=== PATIENT | female | born 1990 | race African-American/Black ===

== ENCOUNTER 2019-02-04 13:29 | Emergency (ER) | payer OTHER ==
[~2019-02-04] VITALS: Ht 165.1 cm; Wt 66.2 kg
[2019-02-04] MEDS ORDERED: KEPPRA250 MG PO (13:38)
[2019-02-04] MEDS ORDERED: CIPROFLOXIN HC2.5 M1 OPHTHALMIC (14:31)
[2019-02-04 15:51] VITALS: BP 95/63
== END 2019-02-04 15:35 | disposition home or self-care (01) ==
LOC: ER 13:29
DX: H16.001 Unspecified corneal ulcer, right eye (principal); Z98.51 Tubal ligation status

== ENCOUNTER 2019-02-16 21:46 | Emergency (ER) | payer OTHER ==
[~2019-02-16] VITALS: Ht 165.1 cm; Wt 56.7 kg
[~2019-02-16 21:46] MED LIST: CIPROFLOXIN HC2.5 M1 OPHTHALMIC; KEPPRA250 MG PO
[2019-02-16 22:50] VITALS: BP 101/71
== END 2019-02-16 23:00 | disposition home or self-care (01) ==
LOC: ER 21:46
DX: Z20.2 Contact with and (suspected) exposure to infections with a predominantly sexual mode of transmission (principal)

== ENCOUNTER 2019-09-02 22:24 | Emergency (ER) | payer OTHER ==
[~2019-09-02] VITALS: Ht 170.2 cm; Wt 59.0 kg
[2019-09-03 00:38] LABS: ABSOLUTE NEUTROPHILS 2.5 thou/uL (1.4-8.2); BASOPHILS 0.9 % (0.0-2.0); EOSINOPHILS 0.5 % (0.0-3.0); HEMATOCRIT 31.8 % (37.0-47.0); HEMOGLOBIN 9.8 gm/dL (12.0-15.0); LYMPHOCYTES 27.8 % (24.0-44.0); MCH 23.2 pg (26.0-34.0); MCHC 30.9 g/dL (28.0-37.0); MCV 75.3 fL (80.0-100.0); MONOCYTES 10.7 % (1.0-8.0); PLATELET COUNT 277 thou/uL (150-400); POLYS 60.1 % (36.0-66.0); RBC 4.23 mil/uL (4.20-5.00); RDW 17.3 % (10.5-14.5); WBC 4.2 thou/uL (4.0-11.0)
[2019-09-03 00:44] LABS: CALCIUM 8.3 mg/dL (8.5-10.1); CREATININE 0.7 mg/dL (0.6-1.0); POTASSIUM 3.4 mmol/L (3.5-5.1)
[2019-09-03 00:50] LABS: ALBUMIN 3.7 g/dL (3.4-5.0); TOTAL BILIRUBIN 0.8 mg/dL (<0.1-1.0); TOTAL PROTEIN 7.4 g/dL (6.4-8.2)
[2019-09-03 00:56] LABS: URINE BILIRUBIN NEGATIVE (Negative); URINE BLOOD TRACE (Negative); URINE CLARITY CLEAR; URINE COLOR YELLOW; URINE GLUCOSE-RANDOM* NEGATIVE (Negative); URINE KETONES NEGATIVE (Negative); URINE LEUKOCYTES-REFLEX NEGATIVE (Negative); URINE NITRITE-REFLEX NEGATIVE (Negative); URINE PROTEIN (DIPSTICK) NEGATIVE (Negative); URINE SPECIFIC GRAVITY 1.025 (1.005-1.035); URINE UROBILINOGEN 0.2 E.U./dl (0.2-1.0)
[2019-09-03] MEDS ORDERED: IBUPROFEN 400400 M1 PO (01:24)
[2019-09-03] MEDS ORDERED: FLEXERIL PO (01:24)
[2019-09-03 01:45] VITALS: BP 108/79
== END 2019-09-03 02:02 | disposition home or self-care (01) ==
LOC: ER 22:24
PROVIDERS: Emergency Medicine Emergency Medical Services
DX: R10.32 Left lower quadrant pain (principal); Z98.51 Tubal ligation status

== ENCOUNTER 2019-09-07 18:20 | Emergency (ER) | payer OTHER ==
[~2019-09-07] VITALS: Ht 170.2 cm; Wt 59.0 kg
[~2019-09-07 18:20] MED LIST changes: +FLEXERIL PO; +IBUPROFEN 400400 M1 PO
[2019-09-07 19:37] LABS: URINE BILIRUBIN NEGATIVE (Negative); URINE BLOOD NEGATIVE (Negative); URINE CLARITY CLEAR; URINE COLOR YELLOW; URINE GLUCOSE-RANDOM* NEGATIVE (Negative); URINE KETONES NEGATIVE (Negative); URINE LEUKOCYTES-REFLEX NEGATIVE (Negative); URINE NITRITE-REFLEX NEGATIVE (Negative); URINE PROTEIN (DIPSTICK) NEGATIVE (Negative); URINE SPECIFIC GRAVITY 1.025 (1.005-1.035)
[2019-09-07 19:37] LABS: ABSOLUTE NEUTROPHILS 1.7 thou/uL (1.4-8.2); EOSINOPHILS 2.4 % (0.0-3.0); HEMATOCRIT 29.5 % (37.0-47.0); HEMOGLOBIN 9.3 gm/dL (12.0-15.0); LYMPHOCYTES 41.1 % (24.0-44.0); MCH 23.6 pg (26.0-34.0); MCHC 31.3 g/dL (28.0-37.0); MCV 75.3 fL (80.0-100.0); MONOCYTES 12.5 % (1.0-8.0); PLATELET COUNT 262 thou/uL (150-400); RBC 3.92 mil/uL (4.20-5.00); RDW 17.2 % (10.5-14.5); WBC 3.9 thou/uL (4.0-11.0)
[2019-09-07 19:40] LABS: ANION GAP 6 mmol/L (7-16); BUN 8 mg/dL (7-18); CALCIUM 8.4 mg/dL (8.5-10.1); CHLORIDE 104 mmol/L (98-107); CO2 29 mmol/L (21-32); CREATININE 0.8 mg/dL (0.6-1.0); GLUCOSE 84 mg/dL (74-106); POTASSIUM 3.6 mmol/L (3.5-5.1); SODIUM 139 mmol/L (136-145)
[2019-09-07 19:46] LABS: ALBUMIN 3.3 g/dL (3.4-5.0); DIRECT BILIRUBIN < 0.1 mg/dL (<0.1-0.2); LIPASE 135 U/L (73-393); SGOT 16 U/L (15-37); SGPT 11 U/L (30-65); TOTAL BILIRUBIN 0.4 mg/dL (<0.1-1.0); TOTAL PROTEIN 6.8 g/dL (6.4-8.2)
[2019-09-07] MEDS ORDERED: MOBIC15 MG PO (21:21)
[2019-09-07 21:54] VITALS: BP 90/49
== END 2019-09-07 21:55 | disposition home or self-care (01) ==
LOC: ER 18:20
PROVIDERS: Emergency Medicine
DX: R10.32 Left lower quadrant pain (principal); G40.909 Epilepsy, unspecified, not intractable, without status epilepticus; Z98.51 Tubal ligation status; Z79.899 Other long term (current) drug therapy

== ENCOUNTER 2020-07-10 23:34 | Emergency (ER) | payer OTHER ==
[~2020-07-10] VITALS: Ht 175.3 cm; Wt 81.7 kg
[~2020-07-10 23:34] MED LIST changes: +MOBIC15 MG PO
[2020-07-11] MEDS ORDERED: MOBIC15 MG PO (02:17)
[2020-07-11 02:31] VITALS: BP 90/51
== END 2020-07-11 02:31 | disposition home or self-care (01) ==
LOC: ER 23:34
DX: B34.9 Viral infection, unspecified (principal); G40.909 Epilepsy, unspecified, not intractable, without status epilepticus; Z98.51 Tubal ligation status; Z20.828 Contact with and (suspected) exposure to other viral communicable diseases; Z79.899 Other long term (current) drug therapy